=== PATIENT | male | born 1985 | race African-American/Black ===

== ENCOUNTER 2019-10-31 13:57 | Outpatient (CLI) | payer BC, SELFPAY ==
--- NOTE | 2019-11-05 13:54 | SLEEP_ITS ---
Home Sleep Test DATE OF STUDY: 10/31/2019 REASON FOR THIS STUDY: Hypersomnolence. HISTORY: The patient is a 34-year-old man, 5 feet 11 inches tall, weighing 320 pounds with a body mass index of 44.6. He complains that he falls asleep very easily, he is always tired and at times he has fallen asleep at the wheel. He always falls asleep when he is watching television or a passenger in the car. People have told him that he stops breathing while he sleeps. He wakes up throughout the night and is always sleepy in the day. He has had CPAP in the past. He does snore and it is constantly loud enough that others complain about it. He occasionally awakens from sleep feeling short of breath. He rarely awakens at night with heartburn, belching, or coughing. He does not have trouble sleeping with a cold. He rarely gasps for breath at night. He constantly has breathing problems observed by others. He rarely sweats excessively at night and occasionally notices his heart pounding or beating irregularly at night. He constantly falls asleep during the day, constantly involuntarily, and constantly while driving. He does not fall asleep with physical effort or with laughing or crying. He does not have loss of muscle tone with strong emotion. He frequently has daytime difficulties due to excessive sleepiness. 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 He does not feel paralyzed on waking or falling asleep. He occasionally has vivid dreamlike scenes upon awakening or falling asleep. He is never afraid to go to sleep. He occasionally has nightmares. He frequently remembers his dreams. He frequently has racing thoughts, occasionally feels sad or depressed and rarely has anxiety. He does not have muscular tension or notices parts of his body jerking. He occasionally kicks at night. He rarely has crawling and aching feelings in his legs. He never has leg pain at night. He rarely has morning jaw pain, rarely grinds his teeth at night. He does not have pain during the night and is not bothered by pain during the day. He rarely wakes up feeling stiff in the morning with sore achy muscles. He does at times feel depressed and tense and have nightmares. Normal bedtime is between 09:00 and 11:00 p.m., falling asleep very quickly, waking 3-4 times at night to go to the bathroom. He goes back to sleep if possible. He wakes in the morning between 05:00 and 09:00 a.m. On the weekends he stays up a bit later as late as midnight and will sleep until 07:00 to 10:00 a.m. He does take naps. A short nap is not refreshing. He is drowsy in the morning for 3 hours or longer. MEDICAL COMORBIDITIES: Hypertension, depression, obstructive sleep apnea syndrome. MEDICATIONS: Lisinopril and hydrochlorothiazide 1 daily. HABITS: Smoking quit 1-2 months ago. Caffeine, 1 beverage a day. Alcohol, 1 beverage a day. DESCRIPTION OF THE STUDY: [place] Sleepiness Scale, score is 19. This was conducted as an unattended portable type 3 home sleep apnea test with 4 channel monitoring including respiratory effort channel, however, the other channels the oxygen saturations, snoring channel, and heart rate channel were not operational. The duration of the available data was 2 hours and 1 minute. The apnea-hypopnea index was 61.4 and this was based on the respiratory effort channel. He had 124 apneas and 97% of these were 120 apneas were obstructive, 3% of the apneas, 4 apneas were central and he had 576 snoring events. He had no hypopneas. Desaturations were not obtained due to the lack of oximetry data. Therefore, oxygen desaturation index was not obtained and the pulse was not obtained. IMPRESSION: This study was insufficient in that it was less than 4 hours of study time and did not include the oxygen saturation channel, an
== END 2019-10-31 13:58 | disposition home or self-care (01) ==
LOC: ANHCSM 13:58
PROVIDERS: PCP Internal Medicine; Visit Provider Internal Medicine
DX: G47.33 Obstructive sleep apnea (adult) (pediatric) (principal)
CPT/HCPCS: 95806

== ENCOUNTER → 2019-12-14 11:38 | Outpatient (CLI) | payer BC, SELFPAY ==
--- NOTE | ~2019-12-14 | XR_ITS ---
EXAMINATION: XR cervical spine 4-5V EXAM DATE: 12/14/2019 14:28 INDICATION: Right-sided neck pain. TECHNIQUE: Cervical spine frontal, lateral, lateral swimmers, and open-mouth odontoid projections. A dditional lateral flexion and extension projections. Comparison is made to prior examination from 07/04. FINDINGS: Vertebral bodies are aligned on the lateral projections. Physiologic amount of motion. Only minimal facet arthropathy suspected. No significant neural foraminal stenosis suspected. The odontoi d process is intact. The lateral masses of C1 line up with C2. Prevertebral soft tissue and pre-dens space are within normal limits. IMPRESSION: 1. Minimal cervical facet arthropathy. Reviewed, dictated and finalized at location A.
--- NOTE | ~2019-12-14 | XR_ITS ---
EXAMINATION: XR lumbar spine 2-3V DATE: 12/15/2019 11:39 INDICATION: Low back pain TECHNIQUE: Anteroposterior and lateral views of the lumbar spine, and cone-down lateral view of the l umbosacral junction were obtained. COMPARISON: 05/05/2012 FINDINGS: There is no fracture, dislocation, or subluxation. The vertebral body heights, alignment, a nd intervertebral disc spaces are normal. The bowel gas pattern is normal. IMPRESSION: 1. No acute osseous abnormality. Reviewed, dictated and finalized at location B.
--- NOTE | ~2019-12-14 | XR_ITS ---
XR knee RT min 4V 12/14/2019 14:28 INDICATION: Right neck pain PROCEDURE: 4 views right knee COMPARISON: No prior studies for comparison. FINDINGS: Fracture, dislocation or subluxation is not identified. No significant joint effusion. The soft tissues appear within normal limits. No foreign bodies are identified. IMPRESSION: 1: NO ACUTE BONE OR JOINT ABNORMALITY IDENTIFIED. Reviewed, dictated and finalized at location A.
--- NOTE | ~2019-12-14 | XR_ITS ---
EXAMINATION: XR thoracic spine 2V EXAM DATE: 12/14/2019 14:28 INDICATION: Right-sided thoracic pain. TECHNIQUE: Frontal and lateral projections of the thoracic spine as well as lateral swimmers projecti on of the upper thoracic spine for interpretation. There is no prior study for comparison. FINDINGS: There is mild mid thoracic levocurvature, could be positional or minimal scoliosis. Some sm all midthoracic Schmorl's nodes. No endplate erosive change. The vertebral bodies are aligned in the AP dimension. Paraspinal soft tissue is unremarkable. IMPRESSION: 1. Mild mid thoracic spondylosis and levocurvature. Reviewed, dictated and finalized at location A.
== END ==
PROVIDERS: Visit Provider Chiropractor
DX: M47.894 Other spondylosis, thoracic region (principal); M54.2 Cervicalgia; M25.561 Pain in right knee
CPT/HCPCS: 72050; 72070; 72100; 73564

== ENCOUNTER 2024-12-18 13:38 | Emergency (ER) | payer OTHER, SELFPAY ==
--- NOTE | ~2024-12-18 | CT_ITS ---
CTA CHEST CLINICAL HISTORY: CHF on CXR but nml BNP; thoracic outlet? . COMPARISON: Chest x-ray today CTA chest 03/17/2019 TECHNIQUE: Helical CTA performed from thoracic inlet to upper abdomen IV contrast information not listed in PACS Coronal, sagittal reformats. Multiplanar MIPS CT images acquired with automatic exposure control for dose reduction DLP: 1182 mGy-cm FINDINGS: Pulmonary arteries: No PE. Thoracic Aorta: No dissection or aneurysm. No subclavian artery attenuation at thoracic inlet. Right subclavian vein attenuation at costoclavicular space. Heart/pericardium: Mildly enlarged. RV/LV ratio: Normal. Lungs/Pleura: Clear. Tracheobronchial tree: Patent. Nodes: No enlarged nodes. Bones: No acute bony abnormality. Soft tissues: Enlarged thyroid, with retrosternal extension. Visualized upper abdomen: Unremarkable. IMPRESSION: 1. No acute cardiopulmonary findings. 2. No subclavian artery attenuation. 3. Review of chest x-ray earlier today probably normal rather than edema. Chest x-ray appearance likely due to overlying soft tissue attenuation. No evidence of edema on this CT. Reviewed, dictated and finalized at location R. IMPRESSION: 1. No acute cardiopulmonary findings. 2. No subclavian artery attenuation. 3. Review of chest x-ray earlier today probably normal rather than edema. Ches t x-ray appearance likely due to overlying soft tissue attenuation. No evidence of edema on this CT.
--- NOTE | ~2024-12-18 | XR_ITS ---
EXAMINATION: XR chest 1V portable COMPARISON: No comparisons available. HISTORY: HTN; numbness L arm FINDINGS: Mild pulmonary venous congestion. No pneumothorax. Mild cardiomegaly. Mediastinal and hilar contours are within normal limits. Bony thorax no acute abnormality. Miscellaneous: None Impression: Mild CHF Reviewed, dictated and finalized at location A. Impression: Mild CHF
--- NOTE | ~2024-12-18 | CT_ITS ---
EXAMINATION: CT cervical spine wo con COMPARISON: None HISTORY: axillary nerve and other L arm paresthesias TECHNIQUE: Axial images were obtained through the spine without IV contrast. Coronal, sagittal reconstruction images were obtained from the axial views. CT scan performed using dose optimization techniques including the following automated exposure control; adjustment of mA and/or kV; use of iterative reconstruction technique. Automatic exposure control was used to reduce radiation dose. Permanent radiation dose record is archived to PACS. FINDINGS: The vertebral heights are intact. No fracture or subluxation. The disc heights are intact. The thyroid lobe appears enlarged with nodules noted the largest 4 x 4.5 cm with mass effect upon the trachea which is deviated to the right, outpatient ultrasound is recommended. The lung apices appear unremarkable. Impression: 1. No acute fracture. Incidental findings above Reviewed, dictated and finalized at location A. Impression: 1. No acute fracture. Incidental findings above
--- NOTE | ~2024-12-18 | CT_ITS ---
EXAMINATION: CT brain wo con COMPARISON: None HISTORY: HTN, L arm paresthesisa TECHNIQUE: Axial images were obtained through the brain without IV contrast. CT scan performed using dose optimization techniques including the following automated exposure control; adjustment of mA and/or kV; use of iterative reconstruction technique. Automatic exposure control was used to reduce radiation dose. Permanent radiation dose record is archived to PACS. FINDINGS: No acute infarct or parenchymal hemorrhage. No abnormal mass or mass effect. No midline shift. No extra-axial fluid collections. No hydrocephalus. . Mastoid air cells unremarkable. Sinuses and orbits unremarkable. No acute fracture. No significant facial or scalp soft tissue swelling evident. No radiopaque foreign body is seen. Impression: 1.No acute intracranial abnormality. Reviewed, dictated and finalized at location A. Impression: 1.No acute intracranial abnormality.
--- NOTE | ~2024-12-18 | XR_ITS ---
EXAMINATION: XR shoulder LT min 2V, 12/18/2024 16:05 CDT HISTORY: paresthesias of axillary nerve distribution COMPARISON: No comparisons available. Findings: No acute fracture or malalignment. No significant degenerative changes. Soft tissues unremarkable. Impression: No acute fracture or malalignment. Reviewed, dictated and finalized at location A. Impression: No acute fracture or malalignment.
[2024-12-18 13:41] VITALS: BP 160/82; PULSE 77; RESP 18; TEMP 36.9; O2SAT 98
--- NOTE | 2024-12-18 13:46 | ECG_ITS ---
Test Date: 2024-12-18 13:50:13 Measurements Intervals [place] Rate: 79 P: 12 MA: 169 QRS: 22 QRSD: 102 T: 66 QT: 384 QTc: 441 Interpretive Statements SINUS RHYTHM NONSPECIFIC T-WAVE ABNORMALITY ABNORMAL ECG No previous ECG available for comparison Electronically Signed On 12-19-2024 07:57:46 CDT by Mendel Huertas M.D.
--- NOTE | 2024-12-18 15:05 | ED.EXTPRO ---
HPI - Extremity Problem General Chief complaint: Extremity Problem,Nontraumatic Stated complaint: hypertension Time Seen by Provider: 12/18/24 15:01 Source: patient and family () Mode of arrival: ambulatory Limitations: no limitations History of Present Illness HPI Narrative: Elisa presents with concern for swelling in his feet/ankles/toes. Also for hypertension despite being on medication. No new meds/recent dose change of his amlodipine and losartan. Recently got compression stockings. He is also having paresthesias over his left shoulder and at times numbness in other areas of left arm over past 24 hours. Possibly slept on his left arm. No trauma to neck or shoulder. 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 No chest pain or shortness of breath. Right hand dominant. No headache. PCP is Pavel. Related Data Allergies Allergy/AdvReac Type Severity Reaction Status Date / Time No Known Allergies Allergy Verified 12/18/24 13:44 [facility] Past Medical History Medical History (Updated 12/21/24 @ 18:34 by Nirali Hadley MD) Right hand dominant Sleep apnea in adult Acute respiratory failure with hypoxia Sleep apnea Eczema Pilonidal cyst Hypertension Surgical History Surgical History History of surgical removal of pilonidal cyst Family History Family History Father Hypertension Son Asthma Social History Social History Social History: full code. Surrogate decision maker was his mother Leyla (versus now spouse?). 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 HEAD: Normocephalic, atraumatic. EYES: Non injected, non icteric ENT: Nares clear, no rhinorrhea or epistaxis. Gross auditory acuity intact. NECK: Supple. No meningismus. No TTP of cervical spine vertebral processes which are midline without bony stepoffs/deformities. Large neck circumference but no particular edema. Full ROM without restrictions. CHEST: Speaking in full sentences. No respiratory distress. HEART: Regular rate and rhythm. . ABDOMEN: Soft, nondistended. No rigidity or guarding. Not peritoneal EXTREMITIES: Normal range of motion. Trace pedal/ankle lower extremity edema SKIN: Warm, dry, no rash. NEURO: No focal deficits. Alert and oriented. Answering questions. Following commands. Normal speech without aphasia or dysarthria. 5/5 strength in bilateral upper extremities at elbows and shoulders. Diminished sensation over deltoid on the left. PSYCH: Normal mood and affect. Course Vital Signs Vital signs: Vital Signs Temperature 98.4 F 12/18/24 13:41 Pulse Rate 77 12/18/24 13:41 Respiratory Rate 18 12/18/24 13:41 Blood Pressure 160/82 H 12/18/24 13:41 Pulse Oximetry 98 12/18/24 13:41 Oxygen Delivery Room Air 12/18/24 13:41 Temperature 98.4 F 12/18/24 13:41 Pulse Rate 76 12/18/24 17:15 Respiratory Rate 18 12/18/24 17:15 Blood Pressure 174/107 H 12/18/24 20:30 Pulse Oximetry 97 12/18/24 17:15 Oxygen Delivery Room Air 12/18/24 13:41 MDM - Extremity (Nontraumatic) MDM Narrative Medical decision making narrative: Patient presents with concern for swelling in his feet/ankles bilaterally as well as numbness in his left arm for the past 24 hours, primarily overlying left deltoid. Also having hypertension despite being on amlodipine and losartan. In the emergency department he is afebrile with vital signs notable for hypertension. Differential diagnoses for axillary nerve dysfunction include?brachial plexopathy, cervical radiculopathy, thoracic outlet syndrome, rotator cuff issues (especially tears), shoulder dislocations or fractures, and quadrilateral space syndrome.?Other considerations include nerve entrapment (from pressure, casts, or crutches), systemic conditions like brachial neuritis (nerve inflammation), and less common causes such as herpes zoster or tumors D-dimer normal. Will not pursue further workup. BNP mildly elevated but not to a degree to suggest acute heart failure. Likely elevated in the setting body habitus. However, based on the interpretation of the chest x-ray by radiologist, will proceed with CT imaging, CTA in particular to evaluate for evidence of thoracic outlet syndrome. Leukocytosis and thrombocytosis. The thrombocytosis a chronic. Mild CPK elevation but not to a degree to suggest acute rhabdomyolysis. I was informed that patient was politely declining CT imaging. However, when I did go to bedside at approximately 5:45 p.m. and thoroughly explained the indications of this study, through shared decision making he and his did decide to proceed. Once complete, discussed patient's work up again with him and including abnormalities and reassuring features. Has a PCP and I advised follow up with them. prescribed a DME large BP cuff. Advised continuing to take medications in the interim and use the compression stockings and elevate feet when possible. Stable for DC. Differential Diagnosis Differential diagnosis: Likely lower extremity edema, deep vein thrombosis of lower extremity and other (acute heart failure; medication side effect (e.g. amlodipine); CVA; C spine vertebral pathology) Lab Data Attestation: I reviewed the patient's lab results. 12/18/24 15:49 12/18/24 15:49 Labs: Lab Results 12/18/24 Range/Units 15:49 WBC 13.4 H (4.5-10.0) K/mm3 RBC 4.70 (4.6-6.20) M/mm3 Hgb 13.4 L (14.0-18.0) g/dL Hct 42.7 (42.0-52.0) % MCV 90.9 (80-100) fl MCH 28.5 (26-34) pg MCHC 31.4 L (32-36) g/dl RDW 17.5 H (11.5-14.5) % Plt Count 399 H (150-375) k/mm3 MPV 9.6 (7.4-10.4) fl Immature Gran % (Auto) 5.0 H (0-0.5) % Neut % (Auto) 64.2 (45.5-73.1) % Lymph % (Auto) 22.3 (18.3-44.2) % [place] % (Auto) 5.2 (2.6-8.5) % Eos % (Auto) 2.7 (0-4.4) % Baso % (Auto) 0.6 (0.2-1.2) % Lymph # (Auto) 2.98 (0.9-3.2) K/mm3 Victoria # (Auto) 0.7 H (0.1-0.6) K/mm3 Eos # (Auto) 0.4 H (0-0.3) K/mm3 Baso # (Auto) 0.1 (0.0-0.1) K/mm3 Abs Immat Gran (auto) 0.67 H (0.00-0.031) K/mm3 Absolute Neuts (auto) 8.6 H (1.3-6.7) K/mm3 Absolute Nucleated RBC 0.000 (0.0-0.012) K/mm3 Nucleated RBC % 0.0 (0.0-0.2) % PT 14.1 (11.1-14.7) Seconds INR 1.1 APTT 34.4 (22.3-36.8) Seconds D-Dimer 0.36 (<0.48) ug/mL Sodium 138 (137-145) mmol/L Potassium 3.9 (3.4-5.0) mmol/L Chloride 98 (98-107) mmol/L Carbon Dioxide 33 H (22-30) mmol/L Anion Gap 7 (4-12) mmol/L BUN 16 (9-20) mg/dL Creatinine 1.18 (0.7-1.3) mg/dL Estim Creat Clear Calc 118 ml/min Estimated GFR > 60 (59 - ) Glucose 96 (65-110) mg/dL Calcium 9.2 (8.4-10.2) mg/dL Magnesium 1.7 (1.6-2.3) mg/dL Total Bilirubin 0.3 (0.2-1.3) mg/dL AST 31 (17-59) U/L ALT 28 (6-50) U/L Alkaline Phosphatase 98 (38-126) U/L Total Creatine Kinase 245 H (55-170) U/L NT-Pro-B Natriuret Pep 118 H (19.9-100) pg/mL Total Protein 8.4 H (6.3-8.2) g/dL Albumin 4.1 (3.5-5.1) g/dL Imaging Data Attestation: I personally reviewed and interpreted this imaging study as follows: My impression: Haziness bilaterally though I suspect due to body habitus; cardiomegaly Radiologist's impression: Incidental Findings: The thyroid lobe appears enlarged with nodules noted the largest 4 x 4.5 cm with mass effect upon the trachea which is deviated to the right, outpatient ultrasound is recommended. Impression: 1. No acute fracture. Incidental findings above Impression: Mild CHF Impression: 1.No acute intracranial abnormality. Impression: No acute fracture or malalignment. IMPRESSION: 1. No acute cardiopulmonary findings. 2. No subclavian artery attenuation. 3. Review of chest x-ray earlier today probably normal rather than edema. Chest x-ray appearance likely due to overlying soft tissue attenuation. No evidence of edema on this CT. ECG Data EKG #1: Attestation EKG: I personally reviewed and interpreted this ECG as follows: ECG completion date: 12/18/24 ECG completion time: 13:50 Interpretation: Normal sinus rhythm at a rate of 79 beats per minute. CA interval 169. QRS 102. QT/QTC 3 4/441. Good R-wave progression across the precordial leads. Mild isolated elevation in V3. Nonspecific biphasic T-wave in V6 but otherwise normal in contiguous V5. Discharge Plan Discharge Clinical Impression: Bilateral swelling of feet and ankles, Paresthesia of left upper extremity, Hypertension, Leukocytosis, Thrombocytosis, Elevated CPK, Enlarged thyroid gland Patient Disposition: Home Condition: Stable Instructions: Antibiotic Form, Paresthesia (ED), Leg Edema (ED), Hypertension (ED), Swollen Ankle Joint (ED) Additional Instructions: Your CT scan was reassuring as there is not evidence of heart failure or the condition we talked about. I do recommend that you follow-up with your primary care physician through [facility] for your foot/ankle/leg swelling, management of your blood pressure, and further work up if the numbness/tingling in your left arm persists. In the meantime, continue to take your blood pressure medications and keep a log of your BP readings and take this to your follow up appointment. If you do not have one, one has been prescribed/ordered. The thyroid lobe appears enlarged with nodules noted the largest 4 x 4.5 cm with mass effect upon the trachea which is deviated to the right, outpatient ultrasound is recommended. Your PCP can help arrange this. Return to the emergency department with any new or worsening symptoms. Patient Language: Occitan Prescriptions: New (DME) blood pressure test kit-large [Quick Response BP Monitor-Larg] Kit See Rx Instructions .Route Qty: 1 0RF Rx Instructions: As directed No Action carvedilol 6.25 mg tablet 6.25 mg PO BID Qty: 180 4RF lisinopril 40 mg tablet 40 mg PO DAILY Qty: 90 3RF hydrochlorothiazide 25 mg tablet 25 mg PO DAILY Qty: 30 0RF Rx Instructions: LAST REFILL UNTIL SEEN Follow-up/Referrals: PHYSICIAN,LAST MARKER [Non-Staff, Internal Medicine] Stand Alone Forms: Work/School Release IP Time of Disposition: 19:13
[2024-12-18 15:58] VITALS: BP 162/101; PULSE 73; RESP 20; O2SAT 98
[2024-12-18 16:04] LABS: Hematocrit 42.7 % (42.0-52.0); Hemoglobin 13.4 g/dL (14.0-18.0); Immature Granulocyte Percent A 5.0 % (0-0.5); Lymphocytes Absolute Auto 2.98 K/mm3 (0.9-3.2); Mean Corpuscular HGB Conc 31.4 g/dl (32-36); Mean Corpuscular Hemoglobin 28.5 pg (26-34); Mean Corpuscular Volume 90.9 fl (80-100); Nucleated Red Blood Cells Absolute Auto 0.000 K/mm3 (0.0-0.012); Nucleated Red Blood Cells Perc 0.0 % (0.0-0.2); Platelet Count Result 399 k/mm3 (150-375); Red Blood Count 4.70 M/mm3 (4.6-6.20); White Blood Count 13.4 K/mm3 (4.5-10.0)
[2024-12-18 16:06] LABS: Alanine Aminotransferase 28 U/L (6-50); Albumin Level 4.1 g/dL (3.5-5.1); Alkaline Phosphatase 98 U/L (38-126); Anion Gap 7 mmol/L (4-12); Aspartate Amino Transferase 31 U/L (17-59); Bilirubin,Total 0.3 mg/dL (0.2-1.3); Blood Urea Nitrogen 16 mg/dL (9-20); Calcium 9.2 mg/dL (8.4-10.2); Carbon Dioxide 33 mmol/L (22-30); Chloride 98 mmol/L (98-107); Creatine Kinase 245 U/L (55-170); Estimated CRCL calculation 118 ml/min; Estimated Glomerular Filt Rate > 60; Glucose 96 mg/dL (65-110); Magnesium 1.7 mg/dL (1.6-2.3); Potassium 3.9 mmol/L (3.4-5.0); Sodium 138 mmol/L (137-145); Total Protein 8.4 g/dL (6.3-8.2)
--- OUTSIDE RECORDS SUMMARY | 2024-12-18 16:10 | XMS_ITS | Clinical Summary ---
Author Organization [facility] Address [address] [place] [id number] Care Team Providers Care Behavior Management Specialist Name Role Phone Cam Zhao Primary Care Provider [phone] Allergies No known active allergies Medications lisinopril (PRINIVIL,ZESTR IL) 10 mg tablet Take 10 mg by mouth daily Active hydroCHLOROthia zide (MICROZIDE) 12.5 mg capsule Take 12.5 mg by mouth daily Active albuterol HFA (PROVENTIL HFA,VENTOLIN HFA,PROAIR HFA) 90 mcg/actuation inhaler Inhale 2 puffs every 6 (six) hours as needed for wheezing Active carvedilol (COREG) 6.25 mg tablet Take 6.25 mg by mouth 2 (two) times a day Active acetaminophen-c odeine (TYLENOL with CODEINE #4) 300-60 mg per tabletIndicatio ns:Sprain of right knee, unspecified ligament, initial encounter,Knee effusion, right Take 1 tablet by mouth every 6 (six) hours as needed for pain P.r.n. pain not relieved by meloxicam alone. Take with food. Collaborating physician Cliff Rushing MD 15 tablet 3 Active meloxicam (MOBIC) 15 mg tablet Take 1 tablet (15 mg total) by mouth daily P.r.n. pain and inflammation. Take with food. Collaborating physician Cliff Rushing MD 30 tablet 3 Active cyclobenzaprine (FLEXERIL) 10 mg tablet Take 1 tablet (10 mg total) by mouth nightly as needed (Take as directed to relax muscles) Collaborating physician Cliff Rushing MD 30 tablet 3 Active amLODIPine (NORVASC) 5 mg tablet Take 1 tablet (5 mg total) by mouth daily 30 tablet 5 026 Active Active Problems Problem Noted Date Diagnosed Date Sprain of right knee 09/21/2022 Knee effusion, right 09/21/2022 Medical History Medical History Date Comments Hypertension Sleep apnea Non-ischemic cardiomyopathy (HCC) Family History Medical History Relation Name Comments Hypertension Father Other Father Hypertension Mother Relation Name Status Comments Father Alive Mother Alive Social History Tobacco Use Types Packs/Day Years Used Date Smoking Tobacco: Never Smokeless Tobacco: Never Tobacco Cessation:Counseling Given: Yes Alcohol Use Standard Drinks/Week Comments Not Currently 0 (1 standard drink = 0.6 oz pur e alcohol) AUDIT-C Answer Date Recorded Frequency of Alcohol Consumption Never 04/17/2019 Average Number of Drinks Not on file 020 Frequency of Binge Drinking Not on file 04/05 Personal Safety Answer Date Recorded Have you ever been in or are you currently in a harmful physical or emotional relationship or is someone making you feel afraid or unsafe? 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 Gender Identity Not on file Sexual Orientation Not on file Obstetrics History Last Filed Vital Signs Vital Sign Reading Time Taken Comments Blood Pressure 119/84 09/03/2024 4:05 PM CDT Pulse 80 09/03/2024 4:00 PM CDT Temperature 36.3 C (97.3 F) 09/03/2024 1:17 PM CDT Respiratory Rate 17 09/03/2024 4:05 PM CDT Oxygen Saturation 98% 09/03/2024 1:17 PM CDT Inhaled Oxygen Concentration - - Weight 163.3 kg (360 lb) 09/03/2024 1:17 PM CDT Height 180.3 cm (5' 11) 09/03/2024 1:17 PM CDT Body Mass Index 50.21 09/03/2024 1:17 PM CDT Plan of Treatment Health Maintenance Due Date Last Done Comments Depression Screening 1985 Hepatitis C Screening 1985 DTaP/Tdap/Td Vaccine (1 - Tdap) 1996 Varicella Vaccines (1 of 2 - 13+ 2-dose series) 1998 Hepatitis B Screening 08/26/2003 Regular Well Visit/Exam 18-64 08/26/2003 HPV Vaccines (1 - 3-dose SCD M series) 2012 Covid-19 Vaccine (3 - 2024-2 6 season) 2024 11/11/2020, 10/14/2020 Influenza Vaccine (#1) 2024 02/05/2020 Pneumococcal vaccine <65 Aged Out No longer eligible based on patient's age to complete this topic Insurance [place] [place] [facility] Care Teams Behavior Management Specialist Relationship Specialty Start Date End Date Cam Zhao PA [address] [place] [address] PCP - General Orthopedic Surgery 09/03/24
--- OUTSIDE RECORDS SUMMARY | 2024-12-18 16:10 | XMS_ITS | Clinical Summary ---
Author Organization [facility] Address [facility] [place] [address] Care Team Providers Care Stainless Steel Finisher Name Role Phone Unavailable Primary Care Provider Unavailabl e Social History Tobacco Use Types Packs/Day Years Used Date Smoking Tobacco: Never Assessed Sex and Gender Information Value Date Recorded Sex Assigned at Not on file Legal Sex Male 8:04 PM CDT Gender Identity Not on file Sexual Orientation Not on file Plan of Treatment Health Maintenance Due Date Last Done Comments Annual Physical 1988 Hepatitis C 08/26/2003 DTaP, Tdap and Td Vaccines ( 1 - Tdap) 2004 Hepatitis B Vaccines (1 of 3 - 19+ 3-dose series) 2004 HPV Vaccines (1 - 3-dose SCD M series) 2012 COVID-19 Vaccine ( - 2023-2 5 season) 2024 Meningococcal B Vaccine Aged Out No l onger eligible based on patient's age to complete this topic Meningococcal Vaccine Aged Out No jammie elmer eligible based on patient's age to complete this topic Pneumococcal Vaccine: Pediat rics (0 to 5 Years) and At-Risk Patients (6 to 49 Years) Aged Out No longer eligible b ased on patient's age to complete this topic RSV Immunizations Under 20 Months Aged Out No longer eligible based on patient's age to complete this topic
--- OUTSIDE RECORDS SUMMARY | 2024-12-18 16:10 | XMS_ITS | Clinical Summary ---
Author Organization [facility] Address [address] [place] [address] Care Team Providers Care Stitch Burnisher Name Role Phone Unavailable Primary Care Provider Unavailabl e Source Comments [facility] [employer],non-owned Affiliates and Associated Physician Practices is amultiple site organization consisting of ambulatory clinics and hospital sitesin [place], [place], [place] and [place]. This disclosure is being madepursuant to the Care Everywhere program and may not contain all information available regarding this patient. Last updated 17.[facility] [employer] Social History Tobacco Use Types Packs/Day Years Used Date Smoking Tobacco: Never Assessed Sex and Gender Information Value Date Recorded Sex Assigned at Not on file Legal Sex Male 4:09 PM CDT Gender Identity Not on file Sexual Orientation Not on file Plan of Treatment Health Maintenance Due Date Last Done Comments HIV SCREENING 2000 HEPATITIS C SCREENING 08/21/2003 DTAP/TDAP/TD VACCINES (1 - Tdap) 2004 HEPATITIS B VACCINE (1 of 3 - 19+ 3-dose series) 2004 HPV VACCINE (1 - 3-dose SCDM series) 2012 DEPRESSION SCREENING 04/05/2024 COVID-19 VACCINE (1 - 2023-2 5 season) 2024 INFLUENZA VACCINE (#1) 2024 ZOSTER VACCINE (1 of 2) 08/26/2035 HIB VACCINE Aged Out No longer eligi ble based on patient's age to complete this topic MENINGOCOCCAL (Group B) VACC INE SHARED DECISION-MAKING Aged Out No longer eligibl e based on patient's age to complete this topic MENINGOCOCCAL GROUPS A/C/Y/W VACCINE Aged Out No longer eligible b ased on patient's age to complete this topic PNEUMOCOCCAL VACCINE Aged Out No long er eligible based on patient's age to complete this topic Insurance [employer] Member Subscriber Plan / Payer (Ef fective 2020-Present) Name:Aung Mari Relation to Subscriber:Self Name:AUNG MARI Payer ID:[id number] (NAIC) Type:PPRoselia Address: [facility] [id number] [place] [id number]
--- OUTSIDE RECORDS SUMMARY | 2024-12-18 16:10 | XMS_ITS | Clinical Summary ---
Author Organization [facility] on Address [address] [place] [address] Phone Care Team Providers Care Shoe Stitcher Name Role Phone Rg Esqueda MD Primary Care Provider [phone] Allergies No known active allergies Medications lisinopril (PRINIVIL) 10 mg tablet Take 10 mg by mouth daily. Active hydrochlorothiaz harjit (MICROZIDE) 12.5 mg capsule Take 12.5 mg by mouth daily. Active Active Problems No known active problems Family History Medical History Relation Name Comments Hypertension Father Healthy Mother Relation Name Status Comments Father Alive Mother Alive Social History Tobacco Use Types Packs/Day Years Used Date Smoking Tobacco: Some Days Smokeless Tobacco: Never Alcohol Use Standard Drinks/Week Comments No 0 (1 standard drink = 0.6 oz pur e alcohol) Sex and Gender Information Value Date Recorded Sex Assigned at Not on file Legal Sex Male 1:33 PM CDT Gender Identity Not on file Sexual Orientation Not on file Last Filed Vital Signs Vital Sign Reading Time Taken Comments Blood Pressure 160/92 11/03/2015 1:56 PM CDT Pulse 82 11/03/2015 1:56 PM CDT Temperature 37 C (98.6 F) 11/03/2015 1:56 PM CDT Respiratory Rate 16 11/03/2015 1:56 PM CDT Oxygen Saturation 100% 11/03/2015 1:56 PM CDT Inhaled Oxygen Concentration - - Weight 133.8 kg (295 lb) 11/03/2015 1:56 PM CDT Height 180.3 cm (5' 11) 11/03/2015 1:56 PM CDT Body Mass Index 41.14 11/03/2015 1:56 PM CDT Plan of Treatment Health Maintenance Due Date Last Done Comments DTAP/TDAP/TD VACCINES (1 - Tdap) 2004 HEPATITIS B VACCINES (1 of 3 - 19+ 3-dose series) 08/04 HPV VACCINES (1 - 3-dose SCDM series) 2012 INFLUENZA VACCINE (#1) 2024 Insurance [facility] [employer] PPO Care Teams Shoe Stitcher Relationship Specialty Start Date End Date Rg Esqueda MD [address] [place] [phone] PCP - General Internal Medicine 11/03/15
--- OUTSIDE RECORDS SUMMARY | 2024-12-18 16:10 | XMS_ITS | Encounter Summary ---
Author Organization [facility] Address [address] [place] [address] Care Team Providers Care Chef French Name Role Phone Unavailable Primary Care Provider Unavailabl e Encounter Details Date Type Department Care Team (Late st Contact Info) Description 11/14/2020 Lab Requisition [facility] [address] [place] [id number] Ronaldo Johnson Jr., MD [address] [facility] [address] [place] [address] Social History Tobacco Use Types Packs/Day Years Used Date Smoking Tobacco: Never Assessed Sex and Gender Information Value Date Recorded Sex Assigned at Not on file Legal Sex Male 4:09 PM CDT Gender Identity Not on file Sexual Orientation Not on file documented as of this encounter Plan of Treatment Not on file documented as of this encounter Procedures Procedure Name Priority Date/Time Associated Diagnosis Comments DERMATOPATHOLOGY Routine 11/12/2020 3:33 AM CDT documented in this encounter Results * DERMATOPATHOLOGY (11/12/2020 3:33 AM CDT) Case Report Dermatopathology Report Case: [id number] Authorizing Provider: Ronaldo Johnson Jr., MD Collected: 11/12/2020 03:33 AM Ordering Location: [facility] Received: 11/14/2020 06:58 AM Pathologist: Telma Mari MD Specimen: Skin, right posterior shoulder 1 1:13 PM CDT DERMATOPATHOLOGY LABORATORY Final Diagnosis Specimen A. SKIN, right posterior shoulder: NEVUS LIPOMATOSUS SUPERFICIALIS (D17.30) 1 1:13 PM CDT DERMATOPATHOLOGY LABORATORY at 1313 CDT Clinical History Nevus lipomatosis superficialis vs skin tag. 1 1:13 PM CDT DERMATOPATHOLOGY LABORATORY Gross Description Specimen A: Received is one formalin filled container labeled with the patient's name and designated right posterior shoulder. The specimen consists of a shave biopsy measuring [id number], bisected. Jar 0. 1 1:13 PM CDT DERMATOPATHOLOGY LABORATORY Microscopic Description Specimen A. SKIN, right posterior shoulder: There is a gently folded epidermis surrounding a connective tissue core in which fat and collagen are intermingled. 1 1:13 PM CDT DERMATOPATHOLOGY LABORATORY Disclaimer An external and internal positive and negative controls are appropriate for the histochemical, immunohistochemical and immunofluorescence stain(s) in this case (if any), except where stated explicitly. The performance characteristics of the stain(s) cited in this report were developed and its performance characteristic determined by the Dermatopathology Laboratory at [facility], directed by Dr. [address]. These tests need not be, and therefore are not, approved by the [place] Food and Drug Administration. The tests are used for clinical purposes. Billing Codes Specimen Charges Stain Charges 75403 1 1 1:13 PM CDT DERMATOPATHOLOGY LABORATORY Embedded Images 1 1:13 PM CDT DERMATOPATHOLOGY LABORATORY Pathology/Cytolo gy TISSUE SPECIMEN FROM SKIN / Unknown 11/12/2020 3:33 AM CDT 11/14/2020 6:58 AM CDT Ronaldo Johnson Jr., MD LAB - PATHOLOGY/CYTOLOG Y ORDERABLES Final Result DERMATOPATHOLOGY LABORATORY [facility] - Department of Dermatology [address] [place] [address], [facility] [phone] documented in this encounter Visit Diagnoses Not on filedocumented in this encounter
--- OUTSIDE RECORDS SUMMARY | 2024-12-18 16:11 | XMS_ITS | Encounter Summary ---
Author Organization [facility] Address [address] [place] [address] Phone Care Team Providers Care Staple Shear Operator Name Role Phone Akash Pato Brittany PAC Unavailable [phone] Cam Zhao PAC Primary Care Provider Reason for Visit * Reason Onset Date Comments High Blood Pressure 12/18/2024 Encounter Details Date Type Department Care Team (Late st Contact Info) Description 12/18/2024 Nurse Triage [facility] [address] [place] [address] Cam Zhao, PAC [address] [place] [address] High Blood Pressure Social History Tobacco Use Types Packs/Day Years Used Date Smoking Tobacco: Some Days Cigars Passive Smoke Exposure: Never Smokeless Tobacco: Never Comments:Occasional cigar us e Alcohol Use Standard Drinks/Week Comments Yes 0 (1 standard drink = 0.6 oz pur e alcohol) Occasionally PHQ-2 Answer Date Recorded Total Score - Questions 1-9 0 08/04 Sexually Active Control Partners Comments Yes Female Sex and Gender Information Value Date Recorded Sex Assigned at Not on file Legal Sex Male 2:51 PM PRODUCTION GEAR CUTTER Gender Identity Male 07/15/2023 3:27 PM CDT Sexual Orientation Not on file documented as of this encounter Miscellaneous Notes * Telephone Encounter - Lena Vail RN - 12/18/2024 12:14 PM CDT SITUATION: 39 y.o. with high blood pressure BACKGROUND: Patient contacting PCP office. ASSESSMENT: Symptom Description / Location: Slight tingling on left side of body Ankle and lower leg swelling intermittent Blood pressure is reading 152/105 Yesterday was 175/124 Denies shortness of breath, chest pain, vision changes RECOMMENDATION: Caller agreeable to highest disposition listed: Go to ED Now. Advised caller to bring cell phone and stop to call 911 for worsening symptoms during travel. Advised for patient to have another adult drive them to the ED. - Reason for Disposition: Systolic BP >= 160 OR Diastolic >= 100, and any cardiac (e.g., breathing difficulty, chest pain) or neurologic symptoms (e.g., new-onset blurred or double vision) . Protocols Used: Blood Pressure - High-A-OH See care advice and disposition for Guideline. First positive answer recorded, all responses to prior questions were negative. If symptoms increase, change or if new symptoms develop, call your health care provider or call back. Recommendations were based on caller information and is not a diagnosis. Verified and reviewed all triage information with caller. * Telephone Encounter - Judie Blanchard - 12/18/2024 12:13 PM CDT Symptom: High Blood Pressure - Caller Reports Outcome: Warm transfer to an emergent RN NOW! Reason: Weak or numb on one side of the body only The caller accepted this outcome. documented in this encounter Plan of Treatment Upcoming Encounters Date Type Department Care Team (Late st Contact Info) Description 03/21/2025 4:45 PM PRODUCTION GEAR CUTTER Office Visit [facility] - [facility] Care - [place] [address] [place] [address] Cam Zhao, PAC [address] [place] [address] documented as of this encounter Visit Diagnoses Not on filedocumented in this encounter Additional Health Concerns Assessment Noted Time PHQ-9 Depression Total Score: 0 09/01/19 25 3:08 PM CDT documented as of this encounter Care Teams Staple Shear Operator Relationship Specialty Start Date End Date Cam Zhao, PAC [address] [place] [address] PCP - General Physician Guide Delegate 09/04/24 Pato Bustos PAC Physician Guide Delegate Physician Guide Delegate 08/02/23 documented as of this encounter
--- OUTSIDE RECORDS SUMMARY | 2024-12-18 16:11 | XMS_ITS | Clinical Summary ---
Author Organization [facility] Address [address] [place] [address] Phone Care Team Providers Care Real Estate Associate Attorney Name Role Phone Pato Bustos PAC Unavailable [phone] Cam Zhao PAC Primary Care Provider Medications hydroCHLOROthiaz harjit 25 MG TabletIndication s:Uncontrolled hypertension Take 1 Tablet by mouth daily. 90 Tablet 3 5 Active losartan (COZAAR) 50 MG TabletIndication s:Uncontrolled hypertension Take 1 Tablet by mouth daily. 90 Tablet 3 5 Active metoprolol Succinate (TOPROL-XL) 50 MG TABLET SR 24 HRIndications:Es sential hypertension Take 1 Tablet by mouth daily. 90 Tablet 3 5 Active tirzepatide-weig ht management (Zepbound) 2.5 MG/0.5ML Solution Auto-injectorInd ications:Class 3 severe obesity due to excess calories with serious comorbidity and body mass index (BMI) of 45.0 to 49.9 in adult,Prediabete s,SHADIA (obstructive sleep apnea) 2.5 mg by Subcutaneous route once a week. 2 mL 5 Active Additional Information Patient not taking.Reported on 12/07/2024 amLODIPine (NORVASC) 10 MG TabletIndication s:Essential hypertension Take 1 Tablet by mouth daily. 90 Tablet 1 5 Active ergocalciferol (VITAMIN D) 79193 UNIT CapsuleIndicatio ns:Vitamin D deficiency Take 1 Capsule by mouth once a week. 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); Tiredness; Diabetes mellitus, latent Discharge Disposition: Discharged to home or Selfcare 12/07/2024 4:30 PM CDT Office Visit [facility] [place] [address] [place] [phone] Cam Zhao PAC Hypersomnia (Primary Dx); Obstructive sleep apnea syndrome; Fatigue, unspecified type; Lower extremity edema; Prediabetes Discharge Disposition: Discharged to home or Selfcare 12/07/2024 Travel 12/07/2024 Nurse Triage [address] [phone] Cam Zhao PAC Fatigue 11/23/2024 [facility]ill [facility] [address] [place] [phone] Cam Zhao PAC Medication Refill 10/28/[address] [address] Cam Zhao, PAC Prior Authorization (tirzepatide-weight management (Zepbound) 2.5 MG/0.5ML Solution Auto-injector) 10/15/2024 MyChart RX Renewal [facility] [address] [place] [phone] Esmer Linares APRN, HOSTEL MANAGER Medication Renewal Reviewed 10/02/2024 10:15 AM CDT Office Visit [place] [address] [place] [phone] Cam Zhao, PAC Abscess of groin, right (Primary Dx); Class 3 severe obesity due to excess calories with serious comorbidity in adult, unspecified BMI Discharge Disposition: Discharged to home or Selfcare 10/02/2024 Travel 10/02/2024 Nurse Triage [facility] [address] [place] [phone] Cam Zhao, PAC Lump 09/21/2024 Telephone [place] [address] [place] [phone] Cam Zhao PAC Results (labs) 09/20/2024 9:20 AM CDT Lab [place] [address] [place] [phone] Lab, [facility] Essential hypertension, malignant (Primary Dx); Routine general medical examination at a health care facility Discharge Disposition: Discharged to home or Selfcare 09/18/2024 3:15 PM CDT Office Visit [place] [address] [place] [phone] Cam Zhao, PAC Preventative health care (Adult) (Primary Dx); Essential hypertension Discharge Disposition: Discharged to home or Selfcare 09/18/2024 Travel from Last 3 Months Immunizations Immunization Administration Dates Next Due Influenza Vaccine, Quadrivalent, PF 02/05/2020 Family History Medical History Relation Name Comments Cancer Maternal Grandfather Relation Name Status Comments Maternal Grandfather Social History Tobacco Use Types Packs/Day Years Used Date Smoking Tobacco: Some Days Cigars Passive Smoke Exposure: Never Smokeless Tobacco: Never Tobacco Cessation:Ready to Q uit: No; Counseling Given: Yes Comments:Occasional cigar use Alcohol Use Standard Drinks/Week Comments Yes 0 (1 standard drink = 0.6 oz pur e alcohol) Occasionally PHQ-2 Answer Date Recorded Total Score - Questions 1-9 0 08/04 Sexually Active Control Partners Comments Yes Female Sex and Gender Information Value Date Recorded Sex Assigned at Not on file Legal Sex Male 2:51 PM DEAN [employer] STUDENTS Gender Identity Male 07/15/2023 3:27 PM CDT Sexual Orientation Not on file Last Filed Vital Signs Vital Sign Reading Time Taken Comments Blood Pressure 140/70 12/07/2024 4:25 PM CDT Pulse 80 12/07/2024 4:25 PM CDT Temperature 36.4 C (97.6 F) 12/07/2024 4:25 PM CDT Respiratory Rate 20 10/02/2024 10:21 AM CDT Oxygen Saturation 92% 12/07/2024 4:25 PM CDT Inhaled Oxygen Concentration - - Weight 168.7 kg (372 lb) 12/07/2024 4:25 PM CDT Height 180.3 cm (5' 11) 12/07/2024 4:25 PM CDT Body Mass Index 51.88 12/07/2024 4:25 PM CDT Plan of Treatment Upcoming Encounters Date Type Department Care Team (Late st Contact Info) Description 03/21/2025 4:45 PM DEAN OF STUDENTS Office Visit [facility] - Primary Care - [place] [address] [place] [address] Cam Zhao, PAC [address] [place] [address] Health Maintenance Due Date Last Done Comments TdaP Immunization 1985 Pneumococcal Immunization Combined (1 of 2 - PCV) 2004 Human Papillomavirus (HPV) Immunization (1 - 3-dose SCDM series) 2012 Influenza Immunization (#1) 2024 02/05/2020 SARS-COV-2 Immunization ( season) 2024 05/17/2021, 11/11/2020, 10/14/2020 Respiratory Syncytial Virus (RSV) Immunization (Adult) (1 - 1-dose 75+ series) 2060 Hepatitis C Virus (HCV) Screening Completed 07/31/2023 Hepatitis B Immunization Discontinued Meningococcal Immunization (ACWY) Aged Out No longer eligible based on patient's age to complete this topic Rotavirus Immunization Aged Out No lo nger eligible based on patient's age to complete this topic Procedures Procedure Name Priority Date/Time Associated Diagnosis Comments HEMOGLOBIN, A1C 09/20/2024 12:00 AM CDT LIPID PANEL 09/20/2024 12:00 AM CDT THYROXINE (T4) FREE 09/20/2024 1 2:00 AM CDT THYROID STIMULATING HORMONE (TSH) 09/20/2024 12:00 AM CDT COMPLETE BLOOD COUNT (CBC) WITH DIFF 09/20/2024 12:00 AM CDT CMP (COMPREHENSIVE METABOLIC PANEL) 09/20/2024 12:00 AM CDT HEPATITIS C ANTIBODY Routine 07/31/2023 10:40 AM CDT Preventative health care (Adult) from Last 3 Months or Most Recently Relevant to Health Maintenance Results * THYROXINE (T4) FREE (09/20/2024 12:00 AM CDT) 09/20/2024 us Provider Scan CHEMISTRY ORDERABLES Final Resul t SCAN * THYROID STIMULATING HORMONE (TSH) (09/20/2024 12:00 AM CDT) 09/20/2024 us Provider Scan CHEMISTRY ORDERABLES Final Resul t SCAN * LIPID PANEL (09/20/2024 12:00 AM CDT) CHOLESTEROL 161 SCAN HDL CHOLESTEROL 37 SCAN LDL 105 SCAN 09/20/2024 us Provider Scan CHEMISTRY ORDERABLES Final Resul t Performing Organization Address City/[facility] de Phone Number SCAN * HEMOGLOBIN, A1C (09/20/2024 12:00 AM CDT) HGB-A1C 6.1 SCAN 09/20/2024 us Provider Scan CHEMISTRY ORDERABLES Final Resul t Performing Organization Address City/[facility] de Phone Number SCAN * CMP (COMPREHENSIVE METABOLIC PANEL) (09/20/2024 12:00 AM CDT) 09/20/2024 us Provider Scan CHEMISTRY ORDERABLES Final Resul t Performing Organization Address [facility] de Phone Number SCAN * COMPLETE BLOOD COUNT (CBC) WITH DIFF (09/20/2024 12:00 AM CDT) 09/20/2024 us Provider Scan HEMATOLOGY ORDERABLES Final Resu lt Performing Organization Address [facility] de Phone Number SCAN * HEPATITIS C ANTIBODY (07/31/2023 10:40 AM CDT) hepatitis C antibody 0.12 <1 S/CO 07/31/2023 10:33 PM CDT [facility] Comment: Signal/Cutoff ratio < 0.79 is Nondetected Signal/Cutoff ratio 0.80-0.99 is Grayzone Signal/Cutoff ratio > 0.99 is Detected Supplemental assays are recommended if signal/cutoff ratio is >/=1.00. Signal/cutoff ratio result >/= 5.00 is 97% predictive of positivity for recombinant immunoblot assay (RIBA) and will be reported to the [place] Department of Public Health as required. Blood Venipuncture / Unknown 07/31/2023 10:40 AM CDT 07/31/2023 10:49 AM CDT us Esmer Linares APRN, HOSTEL MANAGER CHEMISTRY ORDER KANWAL Final Result [facility] [address] [place] [address], [place] from Last 3 Months or Most Recently Relevant to Health Maintenance Insurance [employer] [facility] Care Teams Real Estate Associate Attorney Relationship Specialty Start Date End Date Cam Zhao, PAC [address] [place] [address] PCP - General Physician Hr Business Partner 09/04/24 Pato Bustos, PAC Physician Hr Business Partner Physician Hr Business Partner 08/02/23
[2024-12-18 16:15] LABS: INR 1.1; Partial Thromboplastin Time 34.4 Seconds (22.3-36.8); Prothrombin Time 14.1 Seconds (11.1-14.7)
[2024-12-18 16:16] LABS: NT Pro B Type Natriuretic Pept 118 pg/mL (19.9-100)
[2024-12-18 17:15] VITALS: BP 158/94; PULSE 76; RESP 18; O2SAT 97
--- NOTE | 2024-12-18 17:36 | PC.NURSE ---
Pt updated on plan of care. States he does not want to do additional scan of CTA, made aware.
--- OUTSIDE RECORDS SUMMARY | 2024-12-18 18:53 | XMS_ITS | Clinical Summary ---
Author Organization [employer] [facility] on Address [address] [place] [address] Phone Care Team Providers Care International Project Engineer Name Role Phone Rg Esqueda MD Primary Care Provider [phone] Allergies No known active allergies Medications lisinopril [...] series) 2012 INFLUENZA VACCINE (#1) 2024 Insurance [facility] [employer] PPO Care Teams International Project Engineer Relationship Specialty Start Date End Date Rg Esqueda MD [address] [place] [phone] PCP - General Internal Medicine 11/03/15
--- OUTSIDE RECORDS SUMMARY | 2024-12-18 18:53 | XMS_ITS | Clinical Summary ---
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 Care Teams Gang Mower Operator Relationship Specialty Start Date End Date Cam Zhao PA [address] [place] [address] PCP - General Orthopedic Surgery 09/03/24
--- OUTSIDE RECORDS SUMMARY | 2024-12-18 18:53 | XMS_ITS | Clinical Summary ---
Author Organization [facility] Address [address] [place] [address] Care Team Providers Care Copper Flotation Operator Name Role Phone Unavailable Primary Care Provider Unavailabl e Source Comments [facility] [employer],non-owned Affiliates and Associated Physician Practices is amultiple site organization consisting of ambulatory clinics and hospital sitesin [place] and [place]. This disclosure is being madepursuant to the Care Everywhere program and may not contain all information available regarding this patient. Last updated 17.[facility] [employer] Social History Tobacco Use Types Packs/Day Years [...] patient's age to complete this topic Insurance LISA Member Subscriber Plan / Payer (Ef fective 2020-Present) Name:Aung Mari Relation to Subscriber:Self Name:AUNG MARI Payer ID:[id number] (NAIC) Type:PPRoselia Address: [facility] [address] [place] [id number]
--- OUTSIDE RECORDS SUMMARY | 2024-12-18 18:53 | XMS_ITS | Clinical Summary ---
Author Organization [facility] Address [address] [place] [address] Phone Care Team Providers Care Nurse Gynecology Name Role Phone Pato Bustos PAC Unavailable [phone] Cam Zhao PAC Primary Care Provider [phone] Medications hydroCHLOROthiaz harjit 25 MG TabletIndication s:Uncontrolled [...] Tablet 1 5 Active ergocalciferol (VITAMIN D) 08478 UNIT CapsuleIndicatio ns:Vitamin D deficiency Take 1 Capsule by mouth once a week. 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); Tiredness; Diabetes mellitus, latent Discharge Disposition: Discharged to home or Selfcare 12/07/2024 4:30 PM CDT Office Visit [facility] [place] [address] [place] [phone] Cam Zhao PAC Hypersomnia (Primary Dx); Obstructive sleep apnea syndrome; Fatigue, unspecified type; Lower extremity edema; Prediabetes Discharge Disposition: Discharged to home or Selfcare 12/07/2024 Travel 12/07/2024 Nurse Triage [address] [phone] Cam Zhao PAC Fatigue 11/23/2024 [facility]ill [facility] [address] [place] [phone] Cam Zhao PAC Medication Refill 10/28/[address] [phone] Cam Zhao, PAC Prior Authorization (tirzepatide-weight management (Zepbound) 2.5 MG/0.5ML Solution Auto-injector) 10/15/2024 MyChart RX Renewal [facility] [address] [place] [phone] Esmer Linares APRN, TOOTH CUTTER Medication Renewal Reviewed 10/02/2024 10:15 AM CDT Office Visit [facility] [address] [place] [phone] Cam Zhao, PAC Abscess of groin, right (Primary Dx); Class 3 severe obesity due to excess calories with serious comorbidity in adult, unspecified BMI Discharge Disposition: Discharged to home or Selfcare 10/02/2024 Travel 10/02/2024 Nurse Triage [facility] [address] [place] [phone] Cam Zhao, PAC Lump 09/21/2024 Telephone [facility] [address] [place] [phone] Cam Zhao PAC Results (labs) 09/20/2024 9:20 AM CDT Lab [facility] [address] [place] [phone] Lab, [facility] Essential hypertension, malignant (Primary Dx); Routine general medical examination at a health care facility Discharge Disposition: Discharged to home or Selfcare 09/18/2024 3:15 PM CDT Office Visit [facility] [address] [place] [phone] Cam Zhao, PAC Preventative health care (Adult) [...] on file Legal 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 Gender Identity Male 07/15/2023 3:27 PM CDT [...] st Contact Info) Description 03/21/2025 4:45 PM TEST LAB TECHNICIAN Office Visit [facility] [place] [address] [place] [address] Cam Zhao, PAC [address] [place] [address] Health Maintenance Due Date Last [...] ORDERABLES Final Resul t Performing Organization Address City/[facility] de Phone Number SCAN * HEMOGLOBIN, A1C (09/20/2024 12:00 AM CDT) HGB-A1C 6.1 SCAN 09/20/2024 us Provider Scan CHEMISTRY ORDERABLES Final Resul t Performing Organization Address City/[facility] de Phone Number SCAN * CMP (COMPREHENSIVE METABOLIC PANEL) (09/20/2024 12:00 AM CDT) 09/20/2024 us Provider Scan CHEMISTRY ORDERABLES Final Resul t Performing Organization Address [facility] de Phone Number SCAN * COMPLETE BLOOD COUNT (CBC) WITH DIFF (09/20/2024 12:00 AM CDT) 09/20/2024 us Provider Scan HEMATOLOGY ORDERABLES Final Resu lt Performing Organization Address [facility] de Phone Number SCAN * HEPATITIS C ANTIBODY (07/31/2023 10:40 AM CDT) hepatitis C antibody 0.12 <1 S/CO 07/31/2023 10:[address] [facility] Comment: Signal/Cutoff ratio < 0.79 is Nondetected Signal/Cutoff ratio 0.80-0.99 is Grayzone Signal/Cutoff ratio > 0.99 is Detected Supplemental assays are recommended if signal/cutoff ratio is >/=1.00. Signal/cutoff ratio result >/= 5.00 is 97% predictive of positivity for recombinant immunoblot assay (RIBA) and will be reported to the [place] [facility] as required. Blood Venipuncture / Unknown 07/31/2023 10:40 AM CDT 07/31/2023 10:49 AM CDT us Esmer Linares APRN, TOOTH CUTTER CHEMISTRY ORDER KANWAL Final Result [facility] [address] [place] [address], [place] from Last 3 Months or Most Recently Relevant to Health Maintenance Insurance [employer] [facility] Care Teams Nurse Gynecology Relationship Specialty Start Date End Date Cam Zhao, PAC [address] [place] [phone] PCP - General Physician Program Coordinator [facility] 09/04/24 Pato Bustos, PAC Physician Program Coordinator [facility] Physician Program Coordinator [facility] 08/02/23
--- OUTSIDE RECORDS SUMMARY | 2024-12-18 18:53 | XMS_ITS | Clinical Summary ---
Author Organization [facility] Address [facility] [place] [address] Care Team Providers Care Principal Strategist Name Role Phone Unavailable Primary Care Provider [...]
--- OUTSIDE RECORDS SUMMARY | 2024-12-18 18:53 | XMS_ITS | Encounter Summary ---
Author Organization [facility] Address [address] 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 Gender Identity Male 07/15/2023 3:27 PM CDT [...] st Contact Info) Description 03/21/2025 4:45 PM DRAFTER TOOL DESIGN Office Visit [facility] [place] [address] [place] [phone] Cam Zhao, PAC [address] [place] [address] documented as of this encounter Visit Diagnoses Not on filedocumented in this encounter Additional Health Concerns Assessment Noted Time PHQ-9 Depression Total Score: 0 09/01/19 25 3:08 PM CDT documented as of this encounter Care Teams Carpenter Inspector Relationship Specialty Start Date End Date Cam Zhao, PAC [address] [place] [address] PCP - General Physician [employer] Kil[employer]er 09/04/24 Pato Bustos PAC Physician [employer] Physician [employer]er 08/02/23 documented as of this encounter
--- OUTSIDE RECORDS SUMMARY | 2024-12-18 18:53 | XMS_ITS | Encounter Summary ---
Author Organization [facility] Address [address] [place] [address] Care Team Providers Care Flare Maker Name Role Phone Unavailable Primary Care Provider Unavailabl e Encounter Details Date Type Department Care Team (Late st Contact Info) Description 11/14/[address] [facility] [address] [facility] [place] [phone] Ronaldo Johnson Jr., MD [address] [place] [address] Social History Tobacco Use Types Packs/Day Years [...] AM CDT) Case Report Dermatopathology Report Case: [id number] Authorizing Provider: Ronaldo Johnson Jr., MD Collected: 11/12/2020 03:33 AM Ordering Location: [facility] Received: 11/14/2020 06:58 AM Pathologist: Telma Mrai MD Specimen: Skin, right posterior shoulder 1 [...] specimen consists of a shave biopsy measuring [id number], bisected. Jar 0. 1 1:13 PM CDT [...] characteristic determined by the Dermatopathology Laboratory at [facility], directed by Dr. Pepe [address]. These tests need not be, and therefore are not, approved by the [place] Food and Drug Administration. The tests are used for clinical purposes. Billing Codes Specimen Charges Stain Charges 42592 1 1 1:13 PM CDT [facility] Embedded Images 1 1:13 PM CDT DERMATOPATHOLOGY LABORATORY Pathology/Cytolo gy TISSUE SPECIMEN FROM SKIN / Unknown 11/12/2020 3:33 AM CDT 11/14/2020 6:58 AM CDT Ronaldo Johnson Jr., MD LAB - PATHOLOGY/CYTOLOG Y ORDERABLES Final Result [facility]ER[facility]OLOGY LABORATORY [facility] - Department of Dermatology [address] [place] [address], [facility] [phone] documented in this encounter Visit Diagnoses Not on filedocumented in this encounter
[2024-12-18 20:30] VITALS: BP 174/107
== END 2024-12-18 20:30 | disposition home or self-care (01) ==
PROVIDERS: Emergency Provider Student in an Organized Health Care Education/Training Program
DX: M79.89 Other specified soft tissue disorders (principal); I10 Essential (primary) hypertension; E04.9 Nontoxic goiter, unspecified; D75.839 Thrombocytosis, unspecified; R20.2 Paresthesia of skin; D72.829 Elevated white blood cell count, unspecified; R74.8 Abnormal levels of other serum enzymes; F17.290 Nicotine dependence, other tobacco product, uncomplicated; Z79.899 Other long term (current) drug therapy
CPT/HCPCS: 36415; 70450; 71045; 71275; 72125; 73030; 80053; 82550; 83735; 83880; 85025; 85380; 85610; 85730; 93005; 99284; Q9967